=== PATIENT | male | born 2000 | race African-American/Black ===

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

== ENCOUNTER 2020-11-30 16:20 | Emergency (ER) | payer SELFPAY ==
[2020-11-30 16:54] LABS: Bilirubin Negative (Negative); Blood, Urine Negative (Negative); Clarity Slightly Cloudy (Clear); Glucose, Urine (Dipstick) Negative (Negative); Ketone, Urine Negative (Negative); Leukocyte Negative (Negative); Nitrite Negative (Negative); Protein, Urine (Dipstick) Negative (Neg-Trace); Urobilinogen 0.2 mg/dL (Less than 2)
[2020-11-30 16:55] LABS: Specific Gravity, Urine 1.023 (1.002-1.036)
[2020-11-30] MEDS ORDERED: Ondansetron ODT 4 MG TAB ONE (16:57)
== END 2020-11-30 17:05 | disposition short-term general hospital (02) ==
LOC: BURERS 16:20
DX: N50.811 Right testicular pain (principal); R11.2 Nausea with vomiting, unspecified; J45.901 Unspecified asthma with (acute) exacerbation; Z79.899 Other long term (current) drug therapy
CPT/HCPCS: 81003; 99284; Q0162

== ENCOUNTER 2022-10-14 19:04 | Emergency (ER) | payer SELFPAY ==
[2022-10-14] MEDS ORDERED: Doxepin HCl 25 MG CAP ONE (19:17)
[2022-10-14] MEDS ORDERED: Ipratropium/Albuterol 3 ML NEB ONE ×2 (19:17)
[2022-10-14] MEDS ORDERED: methylPREDNISolone Sod Succ/PF 125 MG/2 ML VIAL ONE (19:22)
[2022-10-14] MEDS ORDERED: Albuterol 2.5 MG/0.5 ML NEB ONE (19:56)
== END 2022-10-14 20:59 | disposition home or self-care (01) ==
LOC: BURERS 19:04
DX: J45.901 Unspecified asthma with (acute) exacerbation (principal); F17.200 Nicotine dependence, unspecified, uncomplicated
CPT/HCPCS: 71045; 96372; J2930; J7611; J7620